=== PATIENT | female | born 2000 | race Caucasian/White ===

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

== ENCOUNTER 2021-03-13 10:18 | Outpatient (RCR) | payer MEDICAID, SELFPAY ==
--- NOTE | 2021-03-13 09:05 | BH.SGPN.GN ---
Behaviors/Verbalizations/Mental Status: [] Eye contact is good. Motor activity is appropriate. Appearance is casual. Speech is Appropriate. Mood is depressed. Affect is flat. Thoughts are linear and logical. No evidence of psychosis. Reviewed daily check in sheet and no reports of suicidal ideations or intent Client Response/Progress/Benefit: [] Pt participated when prompted. Attentive. This was pt's first day in IOP and she shared with the group that she has a hx of PTSD, anxiety, and depression. She reported a recent admission to an inpatient psychiatric unit for a suicide attempt. Briefly talked about recent stressors and struggles with mental health. Group was supportive offered feedback and advice for her first day and week in IOP which was beneficial. No progress noted as this is pt's first day in IOP. Will continue in IOP to maintain safety, increase healthy coping, and prevent decompensation. Narrative Note: []
--- NOTE | 2021-03-13 10:20 | BH.SGPN.GN ---
Behaviors/Verbalizations/Mental Status: []Client alert and oriented, casually dressed and groomed. Eye contact good. Motor activity appropriate. Speech within normal limits. Affect flat, mood depressed and irritable. Thoughts linear, logical, no signs of hallucinations or delusions. Client Response/Progress/Benefit: []Pt was mostly a passive participant in group discussions and activity. Attentive during psychoeducation. Along with peers provided insight into topics discussed which included; What is social support? Why is social support important? What are the benefits of using our supports? How does a lack of strong social supports impact our mental health and symptom management? Pt was mostly quiet during the discussions, but she was engaged in the activity and was able to connect the activity to the topic of creating and maintaining a balance of social supports. Benefited from increased awareness of the benefits to a balanced social support and barriers to utilizing social support. First day of IOP tx. Will continue tx to prevent decompensation, maintain safety, and learn healthier coping skills. Narrative Note: []
--- NOTE | 2021-03-13 11:18 | BH.SGPN.GN ---
Behaviors/Verbalizations/Mental Status: []Client alert and oriented, casually dressed and groomed. Eye contact good. Motor activity appropriate. Speech within normal limits. Affect congruent, mood anxious, depressed. Thoughts linear, logical, no signs of hallucinations or delusions. Client Response/Progress/Benefit: []Client new to IOP tx. She remained an active participant throughout AEB remaining attentive to discussion and taking notes throughout. Client participated in the group activity highlighting the various barriers to effectively utilizing supports and strategies for improving support. Participated in discussion of the 5 ways our supports can support us (emotional, tangible, affirmational, network/belonging, and instructional) and the group listed examples for all types. Client reports wanting to work on increasing emotional support, noting this will help her to have someone to listen and aid in working through stressful situations without getting overwhelmed. Client plans to do this by reaching out to her supports and challenging herself to more actively express her emotions. Client seemed to benefit from identifying the type of support and how this support will aid in promoting overall mental wellness. Will continue with IOP tx to improve insight into mental health, reduce depression, improve healthy coping, and prevent decompensation. Narrative Note: []
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
[2021-03-14 12:13] VITALS: BP 110/72; PULSE 66
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
--- NOTE | 2021-03-14 12:45 | BH.DR.ITP ---
Initial Treatment Plan Patient Information Visit Information: ADMISSION DATE: EXPECTED LOS: 4-6 weeks Problems/Symptoms Problem #1:: Depression Symptom:: Sadness, crying, hopelessness, worthlessness, anhedonia, low energy, guilt, recent passive suicidal ideation, recent suicide attempts. Problem #2:: Anxiety Symptom:: Worry, rumination, panic attacks, flashbacks, reexperiencing, avoidance.
--- NOTE | 2021-03-16 09:02 | BH.SGPN.GN ---
Behaviors/Verbalizations/Mental Status: []Eye contact is good. Motor activity is appropriate. Appearance is casual. Speech is appropriate. Mood is stressed. Affect is congruent. Thoughts are linear and logical. No evidence of psychosis. Reviewed daily symptom tracker sheet with no reports of suicidal ideations, plan, or intent. Client Response/Progress/Benefit: []Client was engaged throughout group discussion. Client reported her emotion of the day as ?scared and stressed?. Client stated that she has been experiencing night terrors, and has been reaching out to her mentor for support. Client also discussed being stressed because her daughter is sick, and her mother did not tell her. Client appeared to benefit from supportive group discussion normalizing feelings and providing suggestions of coping skills, including grounding techniques. Progress notes AEB client?s report of using healthy coping skill of reaching out to support. Client reported per daily symptom tracker that her mood and ability to function have been generally better. Will continue IOP treatment to increase knowledge of healthy coping skills to increase functioning and mood stability. Narrative Note: []
--- NOTE | 2021-03-16 10:00 | BH.SGPN.GN ---
Behaviors/Verbalizations/Mental Status: []Client alert and oriented, neatly dressed and groomed. Eye contact good. Motor activity appropriate. Speech within normal limits. Affect constricted, mood anxious. Thoughts linear, logical, no signs of hallucinations or delusions. Client Response/Progress/Benefit: []Pt was an active participant in group discussion and activity. Attentive during psychoeducation on the stages of change. Pt participated in interactive discussion on emotions associated with change (guilty, anxious, sadness, hopeful, confident, exhausted, etc). Pt along with peers identified barriers that may prevent one from making change which included; fear of the unknown, feeling overwhelmed, and self-doubt. Pt shared ?people plant seeds of doubt in your mind? which has been a barrier to pt changing in the past. Benefited from increased awareness of emotions related to change, the change process, and benefits/barriers to change. Will continue IOP tx to maintain safety, prevent decompensation, and gain healthy coping skills. Narrative Note: []
--- NOTE | 2021-03-16 11:00 | BH.SGPN.GN ---
Behaviors/Verbalizations/Mental Status: []Client alert and oriented, casually dressed and appropriately groomed. Eye contact good. Motor activity appropriate. Speech within normal limits. Affect congruent, mood anxious. Thoughts linear, logical, no signs of hallucinations or delusions. Client Response/Progress/Benefit: []Client responded well to session AEB taking notes and contributing to discussion. Client contributed during psychoeducation on the change process and different emotions in each stage of change. Client identified a change client would like to make to improve mental health which was to increase positive supports in her life.? Client shared this change will help client reduce depression. Client reports belief she is currently in the preparation stage as client has started to block previous toxic people in her life. Client stated reminding herself that it's okay to put herself first will help her keep moving forward with this change. Appeared to benefit from identifying what stage of change client is in and identifying strategies to overcome barriers. Will continue IOP tx to reduce intensity of symptoms, reduce negative thinking, and prevent decompensation.
== END 2021-03-18 23:59 ==
LOC: BHIOP 10:18
PROVIDERS: PCP Family Medicine; Visit Provider Psychiatry & Neurology Psychiatry
DX: O99.341 Other mental disorders complicating pregnancy, first trimester (principal); Z3A.01 Less than 8 weeks gestation of pregnancy; F33.2 Major depressive disorder, recurrent severe without psychotic features; F60.3 Borderline personality disorder; F41.1 Generalized anxiety disorder; F43.10 Post-traumatic stress disorder, unspecified
CPT/HCPCS: 90792; H2012; H2020; T1002

== ENCOUNTER 2021-03-20 09:00 | Outpatient (RCR) | payer MEDICAID, SELFPAY ==
[2021-03-19 00:35] VITALS: BP 110/72; PULSE 66
--- NOTE | 2021-03-20 09:05 | BH.SGPN.GN ---
Behaviors/Verbalizations/Mental Status: [] Eye contact is good. Motor activity is appropriate. Appearance is casual. Speech is Appropriate. Mood is depressed. Affect is flat. Thoughts are linear and logical. No evidence of psychosis. Reviewed daily check in sheet and pt reports 1/5 for suicidal ideations and 0/5 for intent. Therapist discussed this with patient who reports that 1-3 is baseline for her chronic SI. No intent. Client Response/Progress/Benefit: [] Pt was an active participant in group discussion. Attentive. Provided appropriate feedback. Daily symptom tracker notes 4/5 for anxiety and 3/5 for depression. Pt shared psychosocial stressors and how they are impacting her. Reports conflict with her mother who is caring for her child. This is causing frustration and pt is fearful it will impact her relationship with her daughter. She vented stressors and reports that she has spoken with her mentor and top icer and they have agreed to have a meeting with pt and her mother. She believes that this is a healthy ways to address concerns with independent support. Mother is reported to be agreeable. Also reports that she is scheduled to start a new job which is an additional stressor. She believes it will be a healthy distraction and improve purpose. Also believes being busy and social is helpful. Progress noted per pt report. Benefited from group support, encouragement, and feedback. Will continue in IOP to maintain safety and prevent decompensation/re-admission to psych unit. Narrative Note: []
--- NOTE | 2021-03-20 10:15 | BH.SGPN.GN ---
Behaviors/Verbalizations/Mental Status: []Client alert and oriented, casually dressed and groomed. Eye contact poor-head down at times. Motor activity appropriate. Speech within normal limits. Affect flat, mood dysthymic. Thoughts linear, logical, no signs of hallucinations or delusions. Client Response/Progress/Benefit: []Pt was passive during group session as pt was attentive and taking more notes, but was quiet. Attentive during psychoeducation and discussion on the importance of goal-setting with the group. Group identified potential benefits of having goals to include: to better oneself, increase self-confidence, improve relationships, create better boundaries, and improve mental health. Group also worked together to identify barriers to goal-setting which included; self-doubt, fear of failure, fear of success, and lack of motivation. Pt declined to identify any personal barriers that keep pt from setting or reaching goals. Benefited from increased awareness of benefits and barriers to goal-setting. Pt appeared tired today as she was less engaged than previous sessions and had her head down several times. Will continue IOP tx to increase mood stability, reduce impulsivity, and gain healthy coping skills. Narrative Note: []
--- NOTE | 2021-03-20 11:18 | BH.SGPN.GN ---
Behaviors/Verbalizations/Mental Status: []Client mostly alert, at times falling asleep during group as she indicated not feeling well, oriented, casually dressed and groomed. Eye contact fair. Motor activity appropriate. Speech within normal limits. Affect constricted, mood depressed. Thoughts linear, logical, no signs of hallucinations or delusions. Client Response/Progress/Benefit: []Pt was a semi-active participant in group discussions and activities. Engaged in activity, though struggled with remaining fully engaged throughout discussion as she noted not feeling well. Was willing to complete the goalsetting worksheet provided. Pt identified a SMART goal for the next week is to: Identify 1-2 boundaries she would like to begin setting with her mother and new job. Pt reported this would benefit her mental health by improving her relationships and overall self-confidence levels. Identified fear as a potential barrier to completing this goal. Pt able to identify several solutions, such as reaching out to supports, that can help overcome identified barriers. Benefited from group by being able to utilize SMART formula to create a goal. Pt to continue IOP to stabilize mood, increase communication with supports, reduce depression and anxiety, as well as prevent decompensation. Narrative Note: []
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
--- NOTE | 2021-03-21 09:01 | BH.SGPN.GN ---
Behaviors/Verbalizations/Mental Status: []Eye contact is good. Motor activity is appropriate. Appearance is casual. Speech is Appropriate. Mood is anxious and dysthymic. Affect is constricted. Thoughts are linear and logical. No evidence of psychosis. Reviewed daily check in sheet and no reports of suicidal ideations or intent. Client Response/Progress/Benefit: []Pt responded well to session AEB pt sharing thoughts and feelings, listening attentively to others and providing feedback to others. Pt stated feeling anxious because she was having cramping over the weekend and is worried something is wrong with her . Pt reported additional stressor as having a meeting with her mom with her mentor and electrical and instrument technician as mediators. Pt able to identify mental health positive as starting her new job next week. Pt reported additional positive as taking time to write letters as a healthy coping skill. Pt reported she does need to work on finding new hobbies and ways to cope. Pt to continue IOP to increase healthy coping skills, improve emotion regulation and prevent decompensation. Narrative Note: []
--- NOTE | 2021-03-21 10:10 | BH.SGPN.GN ---
Behaviors/Verbalizations/Mental Status: []Eye contact is good. Motor activity is appropriate. Appearance is casual. Speech is Appropriate. Mood is anxious, depressed. Affect is constricted. Thoughts are linear and logical. No evidence of psychosis Client Response/Progress/Benefit: []Pt was an active participant in group discussion AEB taking noted and contributing throughout. Attentive during psychoeducation on Conflict Styles ( Avoidant, Competing, Accommodating, and Collaborating). Participated in interactive group discussion on benefits of conflict.? Pt along with peers identified several reasons conflict is often avoided which included; anxiety, fear of other?s reaction, not wanting to face additional conflict, and negative past experiences. Pt reported that for her conflict is ?scary?. Shared that ?should? thoughts lead to internal conflict for herself. Pt believes she primarily uses the avoidant conflict style. Shared this continues to maintain the conflict or escalates to the point of crisis and self-harming. Noted she has been trying to be more collaborating and competing with potential conflicts lately. Benefited from increased awareness on conflict styles. Will continue in IOP to promote mood stability, increase the use of healthy coping skills for better managing depression, and improve functioning. Narrative Note: []
--- NOTE | 2021-03-21 12:23 | PCM.BH.PN ---
Progress Note Progress Note: In the history of Present Illness/Interim History: [] The patient is a 20-year-old single female who is seen in follow-up at the [facility] [place] behavioral health IOP program. I last saw the patient 1 week ago and at that time the patient presented with severe depression and now has an 8-week intrauterine . She has a history of 3 psychiatric admissions in the past 3 months for depression and suicide attempts by overdosing or cutting her wrists. The patient lives alone in an apartment in [place] and has a 1-year-old daughter that her mother has been raising for the past 8 months. The patient has limited primary support. The patient is having severe nausea and vomiting from morning sickness in the first trimester of her . The patient has been unable to hold down her Prozac at all and is currently therefore not taking any medication for depression. The patient says she cannot swallow any kind of pill or capsule. For this reason the patient was offered Remeron orally dissolving tablets and she refused them at the first visit. The patient states now that she would like to try the mirtazapine tablets that dissolve under the tongue. She understands there is no guarantee that a will not be harmed by antidepressants such as mirtazapine but the current risk of treating the depression outweigh any minor risks of the antidepressant on the . The patient states that although she is still depressed she is not currently suicidal. She also denies homicidal ideation, hallucinations or delusions. She has not been using alcohol or drugs since she found out she was . She is still vaping nicotine 2 puffs a day. Current Psychiatric Medications: [] Prozac 20 mg (unable to take this medication as she cannot keep pills or capsules down). Zofran 4 mg p.o. as needed for nausea. Mental Status Examination: [] The patient is a 20-year-old female who is seen wearing a mask due to the pandemic and is casually dressed and groomed with good hygiene. She has no psychomotor agitation or retardation. She is cooperative during the interview with good eye contact. Speech is normal rate and rhythm and fluent with no pressure. Mood is depressed. Affect is constricted. Thought process is goal-directed and organized. Thought content: There is evidence of passive thoughts of at times with the patient states that she would never kill herself because she knows that her children need her. There is no evidence of suicidal ideation, homicidal ideation, hallucinations or delusions. Reality testing is intact. Judgment is limited. Insight is poor. Impulsivity is high. Diagnosis: 1. Major depressive disorder, recurrent, severe without psychosis 2. Borderline personality disorder 3. Generalized anxiety disorder 4. PTSD 5. 8-week intrauterine 6. Poor primary support 7. Financial, housing and work issues Plan: [] The patient will continue the IOP program at [facility] [place] as the structure, support, education, and group therapy will hopefully prevent worsening of the patient's symptoms which might require rehospitalization. She felt safe during the interview and if it anytime she does not feel safe she will let us know or go to the emergency room. The risk, options, possible complications and side effects of the medications and especially side effects during were discussed with the patient and she understands and accepts these. Patient understands that the risks of not treating her depression at this point outweigh any perceived risks to the . She agrees to try the Remeron under the tongue 15 mg at bedtime daily. If the patient's nausea and vomiting resolve in the second trimester of the patient may be a candidate to change to a pill or capsule medication. She will continue to follow-up with her outpatient psychiatric, obstetric and medical providers. I will see the patient in 1 week in follow-up.
--- NOTE | 2021-03-21 13:42 | BH.MDN_ITS ---
Multi-Disciplinary Note - Note 45-min Individual Time Started:: 11:15 Date: 03/21/21 Purpose of session/treatment goals addressed:: Purpose of session was to address goal 1 from MTP. Eye Contact:: Fair Motor Activity:: Restless Appearance:: Casual Speech:: Rambling Mood:: Anxious, Dysthymic Affect:: Constricted Thoughts:: Racing, No evidence of hallucinations/delusions noted Staff Interventions:: thought challenging, motivational interviewing, CBT te isaac, rapport building, completed risk assessment / safety planning - reducing access to lethal means, goal setting Client Response:: Pt reported feeling anxious today because has a meeting tomorrow with her mom, mentor and post adoption coordinator. Pt stated in the meeting they are to discuss the $7,000 pt gave to her mom to care for pt's one year old daughter. Pt stated they are also to discuss letting pt seeing her daughter on a more frequent basis. Pt stated she is hoping this meeting will be eye opening to her mom. Pt stated it will be helpful to have her mentor and post adoption coordinator at the meeting because they will help pt's mom stay respectful. Pt stated she was in a bad place earlier in the week with having suicidal thoughts. Pt reported she doesn't have any intention to kill herself but was worried that the SI has returned. Pt agreeable to talk to mentor about taking pt's medications to help reduce access to lethal means. Pt receptive to therapist helping pt reframe/challenge distorted thoughts pt has about herself. Pt stated it helps her to see a different perspective because she struggles doing that on her own. Discussed importance of pt engaging in activities that she enjoys doing. Pt identified she likes to write letters, go on walks, hang out with friends, and do crafts. Pt stated she hasn't been engaging in these activities recently. Pt reported goals for week are to shower, look into joining the [place], and hanging out with a friend. Risks/Concerns:: Pt reports increased suicidal ideation this week, but denies suicidal plan or intention to date. See client response for more information. Pt encouraged to give her medications to her mentor to reduce access to means. Pt agreeable. Pt being currently is a significant protective factor. Progress Toward Goals/Plan:: Limited progress. Pt continues to report suicidal ideation, but with decreased intensity and duration. Pt receptive to trying new skills and getting back into engaging in activities she used to enjoy. Pt to continue IOP to increase healthy coping, improve self-confidence and prevent decompensation. Time Stopped:: 12:00
--- NOTE | 2021-03-21 16:44 | BH.PSA_ITS ---
Suicide Assessment Treatment Plan Recommendations
--- NOTE | 2021-03-21 16:44 | BH.PSA ---
Suicide Assessment Treatment Plan Recommendations
--- NOTE | 2021-03-23 11:10 | BH.SGPN.GN ---
Behaviors/Verbalizations/Mental Status: []Client alert and oriented, casually dressed and groomed. Eye contact good. Motor activity appropriate. Speech within normal limits. Affect constricted, mood dysthymic. Thoughts linear, logical, no signs of hallucinations or delusions. Client Response/Progress/Benefit: []Client engaged participant AEB client providing some input during small group discussion, taking notes and listening attentively to others. Group brainstormed strategies to combat social and perceived stigma which included: educating others, no longer using negative language about mental illness, being vulnerable with supports, and attending support groups. Client shared one thing she can do to combat stigma is to practice self-compassion and to reach out when she wants to isolate. Appeared to benefit from increasing awareness of strategies to combat stigma. Will continue IOP tx to prevent decompensation, maintain safety, and gain healthy coping skills. Narrative Note: []
--- NOTE | 2021-03-23 11:16 | BH.COMM ---
Communication Note - Communication with Client Communication Note: This junior technical writer met with pt briefly to assess suicide lethality due to pt indicating a 4/5, with 5 being severe for suicidal thoughts on morning symptom tracker. Pt did indicate a 0/5 for intent to kill self. Pt reported she is feeling suicidal today because the meeting with her mom, business travel consultant and mentor did not go well yesterday. Pt stated she felt attacked by her supports and her issues were not addressed. Pt reported she is now only allowed to see her daughter once a week until she completes IOP. Pt stated she isn't allowed to go to her mom's house to see her sister. Pt reported her business travel consultant, mom and mentor were encouraging pt to give her 1 year old daughter up for adoption. Pt stated she is frustrated that her supports do not believe in her and questioned whether she could complete IOP. Pt stated she will not kill herself. Pt reported she doesn't have a plan and doesn't have any medication at her home to take. Pt stated her plan today is to clean her bed and to hang out with her sister. Pt agreeable to contact [facility] to establish with counseling, psychiatry and case management. Pt stated it would be helpful to have a case management rn that can help her apply for different assistance programs because she has no intention of given up her daughter or give up her child after she gives .
--- NOTE | 2021-03-23 11:21 | BH.MDN ---
Multi-Disciplinary Note - Note 30-min Individual Time Started:: 10:20 Date: 03/23/21 Purpose of session/treatment goals addressed:: This investment underwriter met with pt briefly to assess suicide lethality due to pt indicating a 4/5, with 5 being severe for suicidal thoughts on morning symptom tracker. Pt did indicate a 0/5 for intent to kill self. Eye Contact:: Fair Motor Activity:: Appropriate Appearance:: Casual Speech:: Rambling, Rapid Mood:: Anxious, Irritable, Depressed Affect:: Congruent, Other - tearful Thoughts:: Racing, No evidence of hallucinations/delusions noted Staff Interventions:: motivational interviewing, completed risk assessment / safety planning, goal setting Client Response:: This investment underwriter met with pt briefly to assess suicide lethality due to pt indicating a 4/5, with 5 being severe for suicidal thoughts on morning symptom tracker. Pt did indicate a 0/5 for intent to kill self. Pt reported she is feeling suicidal today because the meeting with her mom, financial data analyst and mentor did not go well yesterday. Pt stated she felt attacked by her supports and her issues were not addressed. Pt reported she is now only allowed to see her daughter once a week until she completes IOP. Pt stated she isn't allowed to go to her mom's house to see her sister. Pt reported her financial data analyst, mom and mentor were encouraging pt to give her 1 year old daughter up for adoption. Pt stated she is frustrated that her supports do not believe in her and questioned whether she could complete IOP. Pt stated she will not kill herself. Pt reported she doesn't have a plan and doesn't have any medication at her home to take. Pt stated her plan today is to clean her bed and to hang out with her sister. Pt agreeable to contact [facility] to establish with counseling, psychiatry and case management. Pt stated it would be helpful to have a director case management that can help her apply for different assistance programs because she has no intention of given up her daughter or give up her child after she gives . Risks/Concerns:: Pt has gotten rid of all her medication that was in her apartment. Does not have access to firearms. Reports ability to keep self safe. Future focused. Identifies being as significant reason to live. see client response for more information. Progress Toward Goals/Plan:: Pt decompensating following stressor with mom and supports. Pt reports motivation to get better and doesn't want to hurt herself. Pt open to getting established with outpatient counseling, psychiatry and case management. Pt could benefit from services that help pt establish with government housing and other assistance programs. Pt to continue IOP to maintain safety, increase healthy coping and prevent decompensation. Time Stopped:: 10:50
--- NOTE | 2021-03-27 09:04 | BH.SGPN.GN ---
Behaviors/Verbalizations/Mental Status: []Client alert and oriented, casually dressed and groomed. Eye contact good. Motor activity appropriate. Speech within normal limits. Affect incongruent as pt smiling while discussing several significant stressors, mood euthymic. Thoughts linear, logical, no signs of hallucinations or delusions. Reviewed client?s symptom tracker, no risk for suicidal ideation rated as 1/5 which is within pt baseline, denies any plan, or intent as of 03/27/21. Client Response/Progress/Benefit: []Client responded well to session, attentive and willing to process with group. Client reports feeling amused this morning which is incongruent with the rest of client check-in. Pt reports several stressors such as reduced visitation time with her daughter, the meeting with her mother and mentor not going well, as well as hurtful comments about her weight by an acquaintance. Pt spent much of session discussing her stressors and feeling upset with her current circumstances but remained smiling and positive as she discussed this. Appears to struggle with recognizing the role her own behaviors have had on maintaining current stressors which may impede progress. Pt reports beliefs she is seeing improvements in her mental health and this is reflected further in reports of maintained mood stability as indicated on daily symptom tracker. Client appeared to benefit from reflecting upon areas of progress as well as skills being used. Will continue IOP tx to promote mood stability, further improve distress management skills, and promote healthy decision making skills. Narrative Note: []
--- NOTE | 2021-03-27 10:12 | BH.SGPN.GN ---
Behaviors/Verbalizations/Mental Status: []Client alert and oriented, neatly dressed and groomed. Eye contact good. Motor activity appropriate. Speech within normal limits. Affect constricted, mood agitated. Thoughts linear, logical, no signs of hallucinations or delusions. Client Response/Progress/Benefit: []Pt was an active participant in group discussion and activity. Attentive during psychoeducation on coping skills. Pt along with peers worked together to identify unhealthy coping skills such as; avoidance, substance use, and trying to take care of issues alone. Group was able to identify why people use unhealthy coping skills such as; easy, comfortable, work in the short-term, habit, or take less energy. Pt noted that one?s perspective can impact how well they cope with significant life stressors and gave a personal example of coping with trauma. Benefited from increased understanding of unhealthy coping skills and the need for developing healthy internal coping skills to manage mental health sx. Pt will continue in IOP to prevent decompensation, increase mood stability, and gain healthy emotional regulation skills. Narrative Note: []
--- NOTE | 2021-03-27 11:12 | BH.SGPN.GN ---
Behaviors/Verbalizations/Mental Status: []Client alert and oriented, casual dress, hygiene tended to. Eye contact good. Motor activity appropriate. Speech within normal limits. Affect congruent, mood dysthymic. Thoughts linear, logical, no signs of hallucinations or delusions. Client Response/Progress/Benefit: []Client responded well to session, actively listening and providing examples. Client reported she needs to increase both healthy internal and external coping skills. Group discussed the different categories of coping skills which included distraction, emotional release, grounding, self-love, and thought challenging. Client participated in creating a coping skills ?menu? from the five categories of coping skills. Client's coping skill menu included: exercise, writing, belly breathing, personal hygiene/drink water, and reading. Appeared to benefit from increasing repertoire of healthy coping skills. Will continue tx to increase healthy coping, improve daily functioning and prevent decompensation. Narrative Note: []
--- NOTE | 2021-03-28 09:04 | BH.SGPN.GN ---
Behaviors/Verbalizations/Mental Status: []Client alert and oriented, casually dressed and groomed, appearing disheveled. Eye contact good. Motor activity appropriate. Speech within normal limits. Affect congruent, mood depressed, agitated. Thoughts linear, logical, no signs of hallucinations or delusions. Reviewed client?s symptom tracker, risk for suicidal ideation reported as 2/5. Pt agreeable to meet with individual therapist for further assessment/safety planning Client Response/Progress/Benefit: []Client receptive to session, attentive though remaining a passive participant. Client reports feeling ?scared and depressed this morning. Client shared she had been in a positive mood yesterday until going to her mother?s to do laundry. Shared knowing that this was potentially self-sabotage as she and her mother had a very tense relationship. Noted that she had tried to avoid her mother and mostly interact with her sister but was not successful in doing so. Shared ultimately getting into a huge argument which resulted in client leaving and experiencing increased urges to engage in self-harming behaviors. Client discussed successfully refraining from doing so and instead called the crisis hotline which was helpful. Reflected that this is progress as she would typically cut following an argument with her mother. Went on to identify plans to establish healthier boundaries with her mother but continues to struggle in this area. Appeared to benefit from structured and supportive group environment. Client recommended continued IOP tx to improve distress tolerance skills, emotion regulation, and healthy decision-making to reduce symptomology and prevent decompensation. Narrative Note: []
--- NOTE | 2021-03-28 10:10 | BH.SGPN.GN ---
Behaviors/Verbalizations/Mental Status: []Client alert and oriented, well dressed and groomed. Eye contact fair. Motor activity appropriate. Speech within normal limits. Affect constricted, mood anxious. Thoughts linear, logical, no signs of hallucinations or delusions. Client Response/Progress/Benefit: []Client responded well to session AEB client contributing to group discussion and listening attentively to others. Group was primarily education based, with clients participating in small group discussion. Client contributed to small group discussion regarding traits to promote resilience. Client?s group discussed keeping things in perspective, maintaining a hopeful outlook, self-care, and taking decisive action to increase resilience. Client seemed to benefit from increased knowledge of strategies to promote resilience. Progress noted in client participating in small group discussion, however client continues to struggle with managing interpersonal conflict. Will continue IOP treatment to increase mood stabilization to increase client?s functioning. Narrative Note: []
--- NOTE | 2021-03-28 13:43 | BH.MDN_ITS ---
Multi-Disciplinary Note - Note 30-min Individual Time Started:: 11:30 Date: 03/28/21 Purpose of session/treatment goals addressed:: Purpose of session was to address goals 1 and 2 from MTP. Eye Contact:: Fair Motor Activity:: Restless Appearance:: Casual Speech:: Rambling - at times Mood:: Anxious, Depressed Affect:: Constricted Thoughts:: Linear, No evidence of hallucinations/delusions noted Staff Interventions:: thought challenging, motivational interviewing, CBT techniques, strengths perspective, goal setting Client Response:: Pt stated she wants to get her daughter back from her mom because she doesn't think it's a good environment for her daughter. Pt reported she had raised her daughter from until her daughter was 6 months old on her own. Pt stated she gave her daughter to her mom temporarily in October 2020 because pt knew she wasn't doing well and couldn't provide what her daughter needed. Pt reported she does believe she was being a good mom by recognizing at the time her daughter would be better with her mom. Pt stated now she is questioning if she should get her daughter back now. Pt receptive to therapist challenging pt's perspective. Pt agreed it would be better if she continued the current plan of her daughter staying with her mom until pt graduates from [employer]. Pt also agreed it would be rodas to get established with the counseling center so she can have outpatient counseling, psychatiry and case management established. Therapist reminded pt she needs to show her family that she can be stable by staying out of the hospital, not hurting herself, and maintaining her new job. Pt agreeable she needs to focus on improving her mental health and establishing with outpatient providers so she can feel more stable to get her daughter back. Pt reported goal for week is to pay bills, ,call counseling center and call [facility] to get her medication figured out. Risks/Concerns:: Pt reports passive thoughts of at times. Denies suicidal intention or plan to date. NO access to firearms or medications. Future focused. Progress Toward Goals/Plan:: Progress noted with pt reporting decrease in SI, increased motivation to use skills to get better, and ability to challenge persepctive. Pt continues to struggles with emotion regulation in the moment which leads to impulsive urges to engage in self-sabotage behaviors. Pt struggles with independently challenging distorted thoughts and persepctive. Pt is to continue IOP to increase consistent use of healthy coping, challenge distorted thoughts and prevent decompensation. Time Stopped:: 12:00
--- NOTE | 2021-03-30 09:05 | BH.SGPN.GN ---
Behaviors/Verbalizations/Mental Status: [] Eye contact is good. Motor activity is appropriate. Appearance is casual. Speech is Appropriate. Mood is irritable. Affect is full. Thoughts are linear and logical. No evidence of psychosis. Reviewed daily check in sheet and no reports of suicidal ideations or intent. Client Response/Progress/Benefit: [] Pt was an active participant in group discussion on the role of blame on mental health. Daily symptom tracker notes 4/5 for irritability and 3/5 for anxiety. Continues to report struggles with relationship with her mother. They have trouble communicating effectively and setting boundaries with each other. She shared that she felt good after IOP on 03/28/21 however was contacted by her mother with a crisis event or drama which worsened her mood for the remainder of the night. Mental health win is that she is scheduled to begin her job this evening. Reports that she is attempting to utilize skills and self-care strategies. Also reports that she does get benefit from attending IOP and getting support for her mental health. Some progress noted per pt report. Benefited from group support, encouragement, and feedback. Will continue in IOP to maintain safety, increase healthy coping, and prevent decompensation. Narrative Note: []
--- NOTE | 2021-03-30 10:15 | BH.SGPN.GN ---
Behaviors/Verbalizations/Mental Status: []Client alert and oriented, casually dressed and groomed. Eye contact good. Motor activity appropriate. Speech within normal limits. Affect constricted, mood depressed. Thoughts linear, logical, no signs of hallucinations or delusions. Client Response/Progress/Benefit: []Pt frequently nodding during group discussions and attentive during psychoeducation. Took notes as group identified obstacles or potholes that hinder our ability to communicate in stressful situations. Group identified the following obstacles; shutting down, mind-reading, lashing out, and becoming defensive. Pt provided insight on how emotion and mood can impact effective communication. Pt took an active role during the activity and processed how she felt anxious to have her back to peers. Pt shared she reminded herself that IOP is a safe place, and this helped pt cope in the moment. Benefited from increased awareness on how our emotions impact our communication. Will continue in IOP to reduce frequency of suicidal ideations, increase emotional regulation skills, and improve functioning. Narrative Note: []
--- NOTE | 2021-04-03 09:00 | BH.SGPN.GN ---
Behaviors/Verbalizations/Mental Status: []Client alert and oriented, casually dressed and groomed. Eye contact good. Motor activity appropriate. Speech within normal limits. Affect congruent, mood euthymic and anxious. Thoughts linear, logical, no signs of hallucinations or delusions. Reviewed client?s symptom tracker, no risk for suicidal ideation, plan, or intent as of 04/03/21 Client Response/Progress/Benefit: []Client responded well to session, attentive and connecting with peers. Client reports feeling happy and stressed this morning due to work stressors and ongoing interpersonal relationship issues. Client's biggest stressor is her relationship with her mother as her mother is the primary caregiver for client's daughter. Client reports belief that her mother is not a good caregiver and often gets frustrated when her mother does not let client see her child. Client admits that there are times client will instigate her mother, but client appears to not see how this could be self-sabotage. Client's wins this week include starting a job and not losing it at work. Progress continues to be variable based on the day/week due to mood being dependent on external situations. Will continue IOP tx to increase emotional regulation skills, improve interpersonal effectiveness skills, and improve functioning. Narrative Note: []
--- NOTE | 2021-04-03 10:05 | BH.SGPN.GN ---
Behaviors/Verbalizations/Mental Status: []Eye contact is good. Motor activity is appropriate. Appearance is neat. Speech is Appropriate. Mood is dysthymic. Affect is constricted. Thoughts are linear and logical. No evidence of psychosis. Client Response/Progress/Benefit: []Pt was an active participant in group discussion AEB taking notes and providing input throughout. Attentive during psychoeducation reviewing internal and external obstacles and provided examples throughout. Participated in the reflection activity in which clients sariah pictures depicting their current and desired reality and shared with the group. Pt stated current reality she feels overwhelmed at times and isolated. However, stated she does have optimism and hope that she can get better. Pt reported desired reality is to have the tools needed to be able to manage stressors more effectively and to feel more stable. Benefited from group by increasing current awareness and expectations for progress. Pt to continue IOP to improve emotion regulation, increase healthy coping and prevent decompensation.
--- NOTE | 2021-04-03 11:10 | BH.SGPN.GN ---
Behaviors/Verbalizations/Mental Status: [] Eye contact is good. Motor activity is appropriate. Appearance is casual. Speech is Appropriate. Mood is euthymic. Affect is full. Thoughts are linear and logical. No evidence of psychosis. Client Response/Progress/Benefit: [] Pt was an active participant in group discussion and activity. Attentive during psychoeducation. Provided appropriate feedback and insight. Pt identified obstacles that have prevented them from obtaining desired reality being family, other's expectations, and poor boundaries. Identified strategies to promote emotional wellness and overcome obstacles which included; leave when feeling disrespected and discuss boundaries with support. Benefited from identifying obstacles in pt's path to mental wellness and developing strategies to minimize the impact of these obstacles. Will continue in IOP to maintain safety, increase healthy coping, and prevent decompensation. Narrative Note: []
--- NOTE | 2021-04-04 09:03 | BH.SGPN.GN ---
Behaviors/Verbalizations/Mental Status: []Client alert and oriented, casually dressed and groomed. Eye contact good. Motor activity appropriate. Speech within normal limits. Affect congruent, mood anxious, euthymic. Thoughts linear, logical, no signs of hallucinations or delusions. Reviewed client?s symptom tracker, no risk for suicidal ideation, plan, or intent as of 04/04/21. Client Response/Progress/Benefit: []Client receptive to session, attentive and willing to participate throughout. Reports feeling ?happy but overwhelmed this morning. Shared that she is happy as she feels she is beginning to make progress. Identified beginning a new job, as well as taking some steps to improve her self-care. Client discussed that she is continuing to struggle with maintaining healthy boundaries however, which has been an ongoing barrier to progress. Acknowledged that at this time her relationship with her mother is unhealthy but plans to attend the family Thanksgiving. Shared feeling obligated to do so as she wants he daughter to have the family experience. Receptive of discussion concerning boundaries potentially limiting exposure or leaving early if possible. Appeared to benefit from supportive group environment and discussion on prioritizing mental health needs. Recommended continued IOP tx to improve mood stability, improve heathy boundary setting and healthy coping, as well as prevent decompensation. Narrative Note: []
--- NOTE | 2021-04-04 10:10 | BH.SGPN.GN ---
Behaviors/Verbalizations/Mental Status: []Client alert and oriented, casually dressed and groomed. Eye contact fair. Motor activity appropriate. Speech within normal limits. Affect congruent, mood euthymic. Thoughts linear, logical, no signs of hallucinations or delusions. Client Response/Progress/Benefit: []Client responded well to session AEB client contributing to session and listening attentively to others. Client connected with the topic of perspective, discussing how a depression lens will make it very difficult to see positives. Client participated in the photo activity, and noted that she felt automatically negative toward the family based on her first glance. When asked to look for positives in the photo, the client stated she felt hopeful, because there is ?always a different way to look at things, and different perspectives?. Client seemed to benefit from increasing awareness of perspectives and how positive perspectives can aid in mental health recovery. Progress noted in client?s increased engagement in group session. Will continue IOP treatment to increase mood stability and prevent decompensation. Narrative Note: []
--- NOTE | 2021-04-04 12:20 | PCM.BH.PN_ITS ---
Progress Note Progress Note: History of Present Illness/Interim History: [] The patient is a 20-year-old female who is seen in follow-up at the [facility] behavioral health IOP program. I last saw the patient 2 weeks ago and at that time the patient was having severe morning sickness with nausea and vomiting and because she was unable to swallow her Prozac without throwing it up she was prescribed orally dissolving tablets of Remeron. The patient never started the Remeron because she says the pharmacy did not have it in stock. The orally dissolving formulation they were unable to get as of yet. The patient is now 11-1/2 to 12 weeks and her and has less morning sickness now with less nausea and vomiting. The patient states that she thinks she might be able to swallow a pill now if she takes it at night. She feels that she is doing better overall and her mood. She has some rough days but she states she has other days where she feels much better now. She feels she is learning skills to cope with her down days or her mood exacerbations. She states that she does not have any passive thoughts of now. She had passive thoughts of suicide once in the past 2 weeks but she reached out for help and was able to get through this. She feels that also being with her baby is protective and she will not kill her self due to that fact. The patient started a new job last week and so far it is going okay. Current Psychiatric Medications: [] None as patient is not taking her Prozac. Mental Status Examination: [] The patient is a 20-year-old female who is seen wearing a mask due to the pandemic and is casually dressed and groomed with good hygiene. She is cooperative during the interview and has no psychomotor agitation or retardation. Eye contact is good and speech is normal rate and rhythm and fluent with no pressure. Mood is less depressed but still some depression. Affect is less constricted. Thought process is goal-directed and organized. Thought content: There is no evidence of passive thoughts of , suicidal ideation, homicidal ideation, hallucinations or delusions. Patient feels that her children need her. Judgment is limited. Insight is limited. Impulsivity is high. Diagnoses: [] 1. Major depressive disorder, recurrent, severe without psychosis (improving) 2. Borderline personality disorder 3. Generalized anxiety disorder 4. PTSD 5. 11-1/2-week intrauterine 6. Poor primary support 7. Financial, housing and work issues Plan: [] The patient will continue the IOP program at [facility] as the structure, support, education, and group therapy will hopefully prevent worsening of the patient's symptoms which might require hospitalization. She felt safe during the interview and if it anytime she does not feel safe she will let us know or go to the emergency room. The risks, options, possible complica tions and side effects of the medications in and breast-feeding were discussed with the patient again and she understands and accepts these. The patient feels that her morning sickness has improved to the point where she feels that if she can take a pill at night she will be able to keep it down. She agrees to try restarting her Zoloft at 50 mg p.o. at bedtime. She understands that Zoloft is probably the best medication to take if you plan to breast-feed and the patient does plan to breast-feed her baby. She will continue to follow-up with her outpatient psychiatric and medical providers also. I will see the patient in follow-up in 1 to 2 weeks.
--- NOTE | 2021-04-05 14:02 | BH.MDN_ITS ---
Multi-Disciplinary Note - Note 30-min Individual Time Started:: 11:25 Date: 04/04/21 Purpose of session/treatment goals addressed:: Purpose of session was to address goal 1 from MTP. Eye Contact:: Good Motor Activity:: Appropriate Appearance:: Casual Speech:: Appropriate Mood:: Euthymic Affect:: Full Thoughts:: Linear, Logical, No evidence of hallucinations/delusions noted Staff Interventions:: CBT techniques, strengths perspective, goal setting, tau ght coping skills Client Response:: Pt reported she accomplished goal of paying some of her bills and getting her medication figured out. She did not complete homework of calling counseling center to get an intake appointment. Pt stated she will do that today. Pt reported she is feeling more stable this week. Pt stated she has stressors but is not being reactive and thinking her actions through before responding. Pt reported she has had old friends say negative things about her but has been able to challenge her negative thinking and focus on what she is doing to get better. Pt repored venting to sister, processing situations, and not personalizing others thoughts/opinions has been helpful in maintaining stability. Pt reported she started her job this week which has gone okay. Pt stated she is annoyed to work with high schoolers because they are immature. Pt reported she is trying to use in the moment calming skills like deep breathing and taking a break to help her keep my cool. Pt stated her big stressor was when her mom wouldn't let pt stay at her mom's house to visit with her daughter. Pt reported she initially was very angry and had some suicidal thoughts. Pt stated she was able to problem solve by taking her daughter to a friend's house. Therapist encouraged pt to plan ahead for this Friday so she knows where to take her daughter. Pt stated goal is to use healthy coping skills, keep up with self-care and get dishes done. Risks/Concerns:: Continues to have passive thoughts of , usually triggered by a stressor. Denies active suicidal/homicidal ideation, plan or intention to date. Future focused. Progress Toward Goals/Plan:: Progress noted with pt reporting improved mood stability, decreased reactivity, improved emotion regulation and starting new job. Pt continues to struggled with mood being dictated by external stressor that tirggers an impulsive urge that is usually self-destructive. Pt has been showing some improvement with stopping self before acting upon self-destructive urge. Pt is to continue IOP to continue use of healthy coping, improve emotion regulation and prevent decompensation. Time Stopped:: 13:00
--- NOTE | 2021-04-10 10:15 | BH.SGPN.GN ---
Behaviors/Verbalizations/Mental Status: []Eye contact is fair- looking at her phone at times. Motor activity is appropriate. Appearance is casual. Speech is Appropriate. Mood is agitated and irritable. Affect is constricted. Thoughts are linear and logical. No evidence of psychosis. Client Response/Progress/Benefit: []Pt was an engaged participant in group discussions. Attentive and provided insights during psychoeducation on benefits and disadvantages of anxiety and review of different types of anxiety disorders. Completed worksheet on identifying own physical symptoms or signs of anxiety which pt reported numerous however identified most frequent as: increased heart rate, stomach issues, feeling shaky, feeling tired, and increased urge to use the restroom. Benefited from increased awareness of physiological signs of anxiety as well as differences between 'normal' anxiety and anxiety disorder. Will continue IOP tx to increase application of healthy coping skills, reduce impulsivity, and improve daily functioning. Narrative Note: []
--- NOTE | 2021-04-10 10:40 | BH.MDN ---
Multi-Disciplinary Note - Note 30-min Individual Time Started:: 09:15 Date: 04/10/21 Purpose of session/treatment goals addressed:: Purpose of session was to address goals 1 and 2 from MTP. Eye Contact:: Good Motor Activity:: Appropriate Appearance:: Casual Speech:: Appropriate Mood:: Anxious, Dysthymic Affect:: Constricted Thoughts:: Linear, Logical, No evidence of hallucinations/delusions noted Staff Interventions:: thought challenging, CBT techniques, mindfulness skills, goal setting Client Response:: Pt stated yesterday was not a good day. Pt reported she stayed in bed until 7pm because was feeling depressed about the holidays and having increased night terrors. Pt stated she recognizes staying in bed increases depressed symptoms. With help from therapist pt identified reaching out to support, taking time to clean a part of her apartment, and doing an activity she enjoys as things she can do next time she wakes up feeling depressed. Pt reported today she came to [facility] because she knows being around support and in groups helps her feel better. Pt stated anxiety about the upcoming holiday because worried there will be a fight with either her mom or mom's . Pt stated she is spending the night at her mom's tomorrow night because she is cooking the Thanksgiving dinner for everyone on . pt reported she is going to ask for help from her sister because trying to do it on her own will be overwhelming. Discussed strategies that can help pt manage stress and anxiety during the holiday gathering. Pt agreed taking breaks in her sister's bedroom and not reacting to comments made by her mom will be helpful to keep environment calm. Pt stated she doesn't want to go off on her family because doesn't want her daughter to see that toxic situation. pt reported if she is triggered by one of her family members and can't calm down then she will take her daughter to her friends house for a few hours. Pt stated she already cleared it with her friend so pt has a backup plan. Pt reported she wants to avoid a huge blow up and having an exit plan will help. Pt stated she did not follow through with goals of doing dishes or calling counseling center to schedule intake appointment. Pt reported she will have her sister hold her accountable so she calls the counseling center this week. Pt reported anxious that she will lose her apartment next month because cannot afford it. Pt stated she will probably move in with her friend because can't live with her mom. Pt reported she knows she will figure it out. Recognizes this is more reason to be established at counseling center so can get a district wildlife manager. Risks/Concerns:: reports occasional passive thoughts of . denies active suicidal/homicidal ideation, plan or intention to date. future focused. Progress Toward Goals/Plan:: Slight decompensation in symptoms AEB pt staying in bed majority of day yesterday, not attempting to use skills to help self. Pt seems to struggle with consistently applying skills, particularly has hard time using skills in the moment. Pt has insight into how her behaviors negatively impact her but seems to lack that insight in the moment. Pt continues to report depressive and anxious symptoms. It is possible pt's symptoms are increasing due to holidays coming up, which pt states she hates and is easily triggered by the holidays. Pt to continue IOP to prevent further decompensation, increase consistent use of skills and challenge distorted thoughts. Time Stopped:: 09:45
--- NOTE | 2021-04-10 11:15 | BH.SGPN.GN ---
Behaviors/Verbalizations/Mental Status: []Client alert and oriented, casually dressed and groomed. Eye contact fair, at times distracted by phone. Motor activity appropriate. Speech within normal limits. Affect congruent, mood euthymic. Thoughts linear, logical, no signs of hallucinations or delusions. Client Response/Progress/Benefit: []Client was a semi-active participant in group discussion, at times appearing distracted by her phone and on other occasions able to provide input to discussion. Reviewed safety behaviors she engages in that reinforce anxiety. Some of client?s safety behaviors include: avoiding, giving up, or turning to unhealthy coping mechanisms. Attentive during psychoeducation on mindfulness coping skills and their impact on mental health wellness. The group worked together to brainstorm anxiety reduction strategies. Client selected trying to complete different counting exercises as the mindfulness skill she will practice over the next three days. Client seemed to benefit from increased repertoire of anxiety reduction skills. Client will continue IOP tx to continue to reduce intensity of symptoms, improve overall functioning and mood stability, as well as prevent decompensation. Narrative Note: []
--- NOTE | 2021-04-11 09:05 | BH.SGPN.GN ---
Behaviors/Verbalizations/Mental Status: []Client alert and oriented, casually dressed and groomed. Eye contact good. Motor activity appropriate. Speech within normal limits. Affect incongruent to mood AEB laughing and joking about stressors, mood anxious. Thoughts linear, logical, no signs of hallucinations or delusions. Reviewed client?s symptom tracker and client's scores are within client's baseline. No risk noted. Client Response/Progress/Benefit: C[]Client responded well to session, receptive to feedback from peers. Client reports feeling scared and grateful this morning. However, client's check-in today was mostly about stressors and impending family conflict. Client shared she had a mental breakdown this morning, but being in group has helped her turn it around. Client reports this was triggered by the upcoming holiday and being around family and trauma triggers. Client shared normally she would be suicidal, but she is not which is progress. Client stated she has been working on developing an escape plan so if she gets too overwhelmed at her mother's house, client can take a break. Therapist attempted to discuss potential boundaries that could be set to prevent conflict, but client reports belief it is important for her to attend the family event. Appeared to benefit from connecting with peers. Continues to struggle with interpersonal effectiveness skills and emotional regulation. Improving with managing suicidal ideations. Will continue IOP tx to prevent decompensation, reduce impulsivity, and improve functioning. Narrative Note: []
--- NOTE | 2021-04-11 09:31 | BH.TPR ---
Treatment Plan Review Date of Admission:: 03/13/21 Date of Treatment Plan Review:: 04/11/21 Admitting Diagnoses:: 1. Major depressive disorder, recurrent, severe without psychosis F33.2. 2. Borderline personality disorder. 3. Generalized anxiety disorder. 4. PTSD Current Diagnoses:: 1. Major depressive disorder, recurrent, severe without psychosis F33.2. 2. Borderline personality disorder. 3. Generalized anxiety disorder. 4. PTSD Patient's Response to Treatment:: Pt consistently attends IOP sessions. Pt's engagement is variable, often based on her mood for the day. When she does participate she offers helpful input to group process. Engaged in individual therapy sessions, but struggles with completing homework. Status of Current Problems and Symptoms: Ongoing problems. Pt continues to report significant daily anxiety. Pt wants to have her one year old daughter back but recognizes she needs to finish treatment so she can be a more present mom. Pt reports constant conflict with pt's mom whom is caring for pt's daughter. This causes more stress and anxiety for pt because mom limits how frequent pt can see her daughter. Pt has reported decrease in depressed symptoms reporting suicidal thoughts have decreased in frequency and severity and is able to accomplish more throughout the day. Pt struggles with consistent application of skills and poor follow through on small goals set in individual sessions. Problem #1 Problem Name:: depression Status of Goals:: obj 1 - partially met. Pt can identify healthy coping skills like opposite action, using positive supports, engaging in hobbies. However pt does struggle with using skills in the moment. Needs help with challenging negative/distorted perspective. obj 2- met with ongoing work encouraged. Per pt's DSM 5 scores at review her depressed symptoms have decreased by 29%. Pt reports improved motivation and not lying around all day. Team Recommendations:: Pt to continue current goal and objectives. Team recommends focus on helping pt increase consistent application of skills and helping pt establish with outpatient care. Problem #2 Problem Name:: Anxiety Status of Goals:: obj 1 - partially met. Pt can identify healthy calming skills like engaging 5 senses, belly breathing and grounding. However pt does struggle with using skills in the moment. obj 2- not met. Per pt's DSM 5 scores at review her anxious symptoms have maintained compared to intake scores. Pt does report significant anxiety about upcoming holidays and having to interact with her family . Team Recommendations:: Pt to continue current goal and objectives. Team recommends focus on helping pt increase consistent application of skills and helping pt establish with outpatient care.
--- NOTE | 2021-04-11 10:15 | BH.SGPN.GN ---
Behaviors/Verbalizations/Mental Status: []Client alert and oriented, casually dressed and groomed. Eye contact good. Motor activity appropriate. Speech within normal limits. Affect congruent, mood anxious. Thoughts linear, logical, no signs of hallucinations or delusions. Client Response/Progress/Benefit: []Client receptive to session, providing input at times and listened attentively to peers. Provided input as the group brainstormed the positive and negative aspects of stress on physical and mental health. Group did well to identify the benefits of stress as well as the impact of distress on performance and mental health. Client identified top stressors such as money problems, family discord, , and being a young mom.. Client identifies money and family to be most significant stressors currently. Stated when has overwhelming amount of stress she tries to reach out to support and focus on what is in her control. Client reported a few weeks ago her reaction to overwhelming stress was to have suicidal thoughts and make impulsive actions. client seemed to benefit from increasing self-awareness of current stressors. Recommended to continue IOP tx to promote use of healthy coping skills, challenge distorted thoughts and prevent decompensation.
--- NOTE | 2021-04-11 11:15 | BH.SGPN.GN ---
Behaviors/Verbalizations/Mental Status: [] Eye contact is good. Motor activity is appropriate. Appearance is disheveled. Speech is Appropriate. Mood is anxious. Affect is congruent. Thoughts are linear and logical. No evidence of psychosis. Client Response/Progress/Benefit: [] Pt was an active participant in group discussion and activity. Attentive during psychoeducation. Provided appropriate feedback. Engaged in group experiential activity which led to interactive discussion on what it means to have control over stressors vs having no control over stressors. Participated in and provided insight during psychoeducation on the four A?s of stress (adapt, alter, avoid, accept). Pt identified stressor of upcoming holiday with her family and made goal to utilize the strategies of Accepting and Adapting stating I have to accept and adapt to the events that are out of my control during the holiday dinner. Benefited from increased awareness of stress management strategies. Will continue in IOP to maintain safety, increase healthy coping, and prevent decompensation. Narrative Note: []
--- NOTE | 2021-04-11 11:50 | PCM.BH.PN ---
Progress Note Progress Note: history of Present Illness/Interim History: [] The patient is a 20-year-old female who is seen in follow-up at the [facility] behavioral health IOP program. The patient is now about 13 weeks and states that her morning sickness now is less. She still vomits but only vomits in the morning now and is planning to take her Zoloft at night and feels she will be able to hold it down. The prescription was sent in 1 week ago but the patient states that the pharmacy did not have it yet and in the past week and she called them yesterday supposedly and they still do not have her Zoloft. She says she will go get it today if it is in and started tonight. Her mood is better because she feels she is learning valuable coping skills in the IOP program which help her deal with her down.. She still has occasional days where she feels sad but overall feels she is doing better. She is working a new job now and it is going well. There are some issues with some of the other personnel at work but the patient is doing well and the issues are with the work boss not the patient. She denies any passive thoughts of , suicidal ideation, homicidal ideation, hallucinations or delusions. She feels that her children are her motivation to do well in life. Current Psychiatric Medications: [] Has not started the Prozac yet and has not picked it up the prescription. Mental Status Examination: [] Patient is a 20-year-old female who is seen wearing a mask due to the pandemic. She is casually dressed and groomed with good hygiene and has no psychomotor agitation or retardation. Eye contact is good and speech is normal rate and rhythm and fluent with no pressure. Mood is depressed but mildly so today. Affect is full and normal today. Thought processes goal-directed and organized. Thought content: There is no evidence of passive thoughts of , suicidal ideation, homicidal ideation, hallucinations or delusions. Judgment is limited. Insight is limited. Impulsivity is high. Diagnoses: [] 1. Major depressive disorder, recurrent, severe without psychosis (improving) 2. Borderline personality disorder 3. Generalized anxiety disorder 4. PTSD 5. 13-week intrauterine 6. Poor primary support 7. Financial, housing issues Plan: [] The patient will continue the IOP program at [facility] as the structure,'s support, education, and group therapy will hopefully prevent worsening of the patient's symptoms which might require hospitalization. She felt safe during the interview and if it anytime she does not feel safe she will let us know or go to the emergency room. The risks, options, possible complications and side effects of the medications in and breast-feeding were discussed again with the patient and she understands and accepts these. The patient will brick picker her prescription today and start her Zoloft 50 mg at bedtime tonight. She will continue to follow-up with her outpatient psychiatric and medical providers.
--- NOTE | 2021-04-17 09:05 | BH.SGPN.GN ---
Behaviors/Verbalizations/Mental Status: []Client alert and oriented, casually dressed and groomed. Eye contact fair. Motor activity appropriate. Speech within normal limits. Affect incongruent- laughing and smiling but reporting stressful and triggering situations, mood anxious. Thoughts linear, logical, no signs of hallucinations or delusions. Reviewed client?s symptom tracker, no risk for suicidal ideation, plan, or intent as of 04/17/21 Client Response/Progress/Benefit: C[]Client responded well to session, less interactive with peers than previous sessions, but engaged. Client reports feeling overwhelmed today due to family stressors and conflict. However, when client described the events, client was laughing about the triggers. Client stated she felt suicidal over the weekend, but used healthy coping skills to reach out to a friend for support. Client self-reports that her mood and ability to function have generally been worse per the daily symptom tracker. Client denies any suicidal ideations or urges to self-harm today on the daily symptom tracker which is progress. However, client's progress appears to be variable based on the day/week and ongoing external stressors. Will continue IOP tx to maintain safety, prevent decompensation, and gain healthy coping skills. Narrative Note: []
--- NOTE | 2021-04-17 10:15 | BH.SGPN.GN ---
Behaviors/Verbalizations/Mental Status: []Client alert and oriented, casually dressed and groomed. Eye contact fair. Motor activity appropriate. Speech within normal limits. Affect constricted, mood dysthymic. Thoughts linear, logical, no signs of hallucinations or delusions. Client Response/Progress/Benefit: []Client engaged participant AEB providing contributions during group discussion and listened attentively to peers. Helped group discuss the benefits of relationships as well as the potential factors maintaining unhealthy relationships. Helped group identify characteristics that can lead to unhealthy relationships which included: poor communication, disrespect, poor emotional regulation, blaming others, and substance abuse. Pt identified she struggles with poor communication and trusting others. Recognizes impact this has on being able to form new relationships. Appeared to benefit from increasing awareness of the impact unhealthy relationships can have on mental health. Pt to continue IOP to increase consistent use of healthy coping, challenge distorted thoughts and prevent decompensation. Narrative Note: []
--- NOTE | 2021-04-17 11:15 | BH.SGPN.GN ---
Behaviors/Verbalizations/Mental Status: [] Client alert and oriented, casually dressed and groomed. Eye contact poor, often looking at phone. Motor activity appropriate. Speech within normal limits, soft. Affect congruent, mood depressed, irritable. Thoughts linear, logical, no signs of hallucinations or delusions. Client Response/Progress/Benefit: [] Client receptive of session, however at times struggled with engagement and appeared distracted by her phone. Able to increase attentiveness during psychoeducation about characteristics of healthy, unhealthy, and abusive relationships. Pt identified that she has been working to improve her own self-care which she connected would in turn improve her overall relationships with others. Reflected upon relationship strengths which pt identified as respecting others and listening as they share, even if she does not agree or believe the relationship is healthy. Appeared to benefit from reflecting upon personal relationship strengths, as well as brainstorming strategies to build healthier relationships. Pt to continue IOP tx to maintain mood stability, continue to promote healthy coping skill application and boundaries, as well as prevent decompensation. Narrative Note: []
== END 2021-04-17 23:59 ==
LOC: BHIOP 09:00
PROVIDERS: PCP Family Medicine; Visit Provider Psychiatry & Neurology Psychiatry
DX: O99.341 Other mental disorders complicating pregnancy, first trimester (principal); Z3A.08 8 weeks gestation of pregnancy; F33.2 Major depressive disorder, recurrent severe without psychotic features; F60.3 Borderline personality disorder; F41.1 Generalized anxiety disorder; F43.10 Post-traumatic stress disorder, unspecified
CPT/HCPCS: 99213; H2012; H2020; S9480; 90832; 90834

== ENCOUNTER 2021-04-18 09:00 | Outpatient (RCR) | payer MEDICAID, SELFPAY ==
[2021-04-18 00:36] VITALS: BP 110/72; PULSE 66
--- NOTE | 2021-04-24 09:05 | BH.SGPN.GN ---
Behaviors/Verbalizations/Mental Status: []Client alert and oriented, casually dressed and groomed. Eye contact good. Motor activity appropriate. Speech within normal limits. Affect incongruent AEB laughing and joking about trauma, mood euthymic. Thoughts linear, logical, no signs of hallucinations or delusions. Reviewed client?s symptom tracker, no risk for suicidal ideation, plan, or intent as of 04/24/21 Client Response/Progress/Benefit: []Client was attentive and contributing during discussion. Client reports feeling anxious and excited this morning, but client struggled to identify what was making her excited. Client identified multiple stressors within the last week including getting sick, her shower breaking, and stressors with her ex-boyfriend. Client appears to minimize the significant of these stressors AEB laughing and joking about these stressors during check-in. Client struggled to identify positives, but able to recognize setting a boundary with her ex-boyfriend as a positive. Client reports some medication concerns and these will be communicated to [facility] psychiatrist. Appeared to benefit from connecting with peers, however, client's ongoing minimization of stressors may client's willingness to make change. Will continue IOP tx to increase emotional regulation skills and improve daily functioning Narrative Note: []
--- NOTE | 2021-04-24 10:15 | BH.SGPN.GN ---
Behaviors/Verbalizations/Mental Status: []Client alert and oriented, casually dressed, hygiene appeared to be tended to. Eye contact good. Motor activity appropriate. Speech within normal limits. Affect full, mood euthymic. Thoughts linear, logical, no signs of hallucinations or delusions. Client Response/Progress/Benefit: []Client responded well to session, attentive and engaged throughout discussion and activity. The group identified benefits of failure as: learning new skills, gaining perspective, and helping individuals learn to succeed. Client stated prior to IOP she viewed failure as a negative and made her feel defeated. Client reported she now can see how failure has something that she can learn from. Client stated she used to let failure define her which would make her think why would I try again? Client appeared to benefit from gaining awareness of the impact fear of failure can have on one?s mental health and wellbeing. Progress noted as client reported being able to challenge her perspective and see failure as something that can help her grow. Will continue IOP to continue the use of healthy coping skills, increase self-confidence, and prevent decompensation.
--- NOTE | 2021-04-24 14:27 | BH.MDN ---
Multi-Disciplinary Note - Note 30-min Individual Time Started:: 11:25 Date: 04/24/21 Purpose of session/treatment goals addressed:: Purpose of session was to address goals 1 and 2. Eye Contact:: Good Motor Activity:: Appropriate Appearance:: Casual Speech:: Appropriate Mood:: Euthymic Affect:: Congruent Thoughts:: Linear, Logical, No evidence of hallucinations/delusions noted Staff Interventions:: CBT techniques, discharge planning, goal setting, other - dsicussion about increasing follow through of healthy coping skills. Client Response:: Pt reported things have been going better with her mom. Pt stated she has been able to spend several hours with her mom and not have a fight. Pt notes this as progress for her because relationship is improving. Pt stated she has not called the counseling center to establish a counseling appointment. Pt called with therapist in session and scheduled intake apointment on 05/22/20. Pt admitted she is struggling with using her coping skills consistently. Pt stated she is reminding herself that it's okay to ask for help and it's okay to have bad moments. Pt reported her goal is to talk with her mom about getting a second job and listen to what her mom has to say instead of reacting. Pt stated she is feeling more ready for discharge next week from [facility]. Risks/Concerns:: denies suicidal ideation, plan or intention to date. future focused. Progress Toward Goals/Plan:: Progress noted with pt reporting improved mood, decreased depression, and improved ability to manage emotions. Pt continues to struggle with consistent application of skills and has difficulty with challenging negative thought patterns independently. Pt to discharge from [facility] next week. Time Stopped:: 12:00
--- NOTE | 2021-04-25 09:03 | BH.SGPN.GN ---
Behaviors/Verbalizations/Mental Status: []Client alert and oriented, casually dressed and groomed. Eye contact good. Motor activity appropriate. Speech within normal limits- often jokes about stressors. Affect congruent, mood anxious. Thoughts linear, logical, no signs of hallucinations or delusions. Reviewed client?s symptom tracker, no risk for suicidal ideation, plan, or intent as of 04/25/21 Client Response/Progress/Benefit: C[]Client responded well to session, contributing and interacting with peers. Client reports feeling scared and proud this morning. Client reported there have been many stressors going on in her life right now and in the past this would trigger suicidal ideations and suicide attempts. Client reports belief that she is coping much better now and when client feels overwhelmed she calls her supports and spends time with them. Client shared she has not been actively suicidal in a while and she feels more future oriented which is significant. Appeared to benefit from reflecting on progress in using emotional regulation skills and support to manage suicidal ideations. Also progress that client can identify progress as client admits that she struggles with giving herself credit. Will continue IOP tx to promote gains and further increase emotional regulation skills. Narrative Note: []
--- NOTE | 2021-04-25 10:10 | BH.SGPN.GN ---
Behaviors/Verbalizations/Mental Status: []Client alert and oriented, casually dressed and groomed. Eye contact good. Motor activity restless. Speech within normal limits. Affect congruent, mood euthymic and anxious. Thoughts linear, logical, no signs of hallucinations or delusions. Client Response/Progress/Benefit: []Pt was an active participant in group discussion. Attentive during psychoeducation on communication styles. Along with peers pt participated in providing insight into the benefits to effective communication on mental health which included; helps us set healthy boundaries, get needs met, improve overall mental health and quality of life, reduce stress, and make time for self-care. Pt along with peers able to identify ways that communication can be misinterpreted and the potential costs this can have mental health and relationships. Pt remained attentive and appeared to benefit from discussion on the various communication styles, as well as reviewing the importance of communicating effectively to improve mental wellness. Shared connecting most with passive communication but can become more assertive when communicating with specific family members who trigger client. Progress noted in increased insight regarding impacts of current communication styles on pt mental health. Will continue IOP tx to improve emotion regulation and distress tolerance skills, improve healthy boundary setting, as well as prevent decompensation. Narrative Note: []
--- NOTE | 2021-04-25 10:25 | BH.COMM ---
Communication Note - Communication with Client Communication Note: Met with client at this time to discuss client's complaints of seeing things. Talking with client, she describes seeing dark shadows at times and thinking she sees people out of the corner of her vision and then no one is there. Client states this has happened to her in the past with no relation to any medication she has been taking. Client states she has been taking her Zoloft as ordered. Discussed with client this is not a hallucination and not due to medication. Client reassured at this time about medication therapy. Client denies any other questions/concerns.
--- NOTE | 2021-04-25 11:10 | BH.SGPN.GN ---
Behaviors/Verbalizations/Mental Status: []Client alert and oriented, casually dressed and appropriately groomed. Eye contact good. Motor activity appropriate. Speech WNL. Affect constricted, mood dysthymic. Thoughts linear, logical, no signs of hallucinations or delusions. Client Response/Progress/Benefit: []Client responded well to session AEB client listening attentively to others and providing input during group discussion on the pay offs and costs of the different communication styles. Client stated she is most often a passive communicator. Client reported this can increase depression since needs aren't being met. Attentive during psychoeducation on interpersonal DBT skill DILEEP and client selected a communication skill to practice. Client selected the skill of asserting self because will help get needs met more often. Client seemed to benefit from increasing awareness of healthy strategies to improve communication. Will continue IOP tx to challenge negative thoughts, increase consistent use of healthy coping and prevent decompensation. Narrative Note: []
--- NOTE | 2021-04-27 09:07 | BH.SGPN.GN ---
Behaviors/Verbalizations/Mental Status: []Eye contact is good. Motor activity is appropriate. Appearance is casual. Speech is Appropriate. Mood is euthymic. Affect is congruent. Thoughts are linear and logical. No evidence of psychosis. Reviewed daily check in sheet and no reports of suicidal ideations or intent. Client Response/Progress/Benefit: []Pt responded well to session AEB sharing thoughts and feelings and appearing to listen attentively to peer. Pt stated this morning started off rough because she was having some belly pain which made her anxious something is wrong with her baby. Pt reported she was able to manage her anxiety and is feeling better now. Pt identified mental health positive as work continuing to get better. Pt identified additional positives as getting her shower fixed in her apartment and relationship with mom is improving. Pt stated current stressor is not getting along with her mom's new . Pt to continue IOP to continue use of healthy coping, decrease self-destructive behaviors and prevent decompensation. Narrative Note: []
--- NOTE | 2021-04-27 10:08 | BH.SGPN.GN ---
Behaviors/Verbalizations/Mental Status: []Client alert and oriented, casually dressed and groomed. Eye contact good, at times appearing distracted by phone. Motor activity appropriate. Speech within normal limits. Affect congruent, mood euthymic. Thoughts linear, logical, no signs of hallucinations or delusions.[] Client Response/Progress/Benefit: []Client engaged during session AEB client contributing to discussion when prompted and completing worksheet, however remained primarily passive in participation. Connected with discussion on crisis and how coping with external crises by using unhealthy coping skills could result in a personal crisis. Provided an example of her daughter losing her favorite blanket resulting in crisis. Group reflected on the importance of having awareness of personal warning signs in order to prevent reaching crisis point. Group identified potential warning signs for crisis and client completed the personal warning signs worksheet. Client identified personal crisis warning signs to include: negative thinking, not caring for self, eating less than usual as punishment. Shared some of her behavior changes have been learned behaviors. Client benefited by increasing awareness of what leads to crisis and personal warning signs. Client will continue IOP to continue to promote continued use of healthy boundary setting, encourage use of healthy emotion regulation skills, as well as prevent decompensation. Narrative Note: []
--- NOTE | 2021-04-27 11:10 | BH.SGPN.GN ---
Behaviors/Verbalizations/Mental Status: []Client alert and oriented, casually dressed and groomed. Eye contact good. Motor activity appropriate. Speech within normal limits. Affect constricted, mood dysthymic and anxious. Thoughts linear, logical, no signs of hallucinations or delusions. Client Response/Progress/Benefit: []Client responded well to session as evidenced by client listening attentively to others and providing strategies during small group discussion. Client identified warning signs for crisis and gained further awareness of earliest warning signs. Client created a crisis action plan to help client better manage warning signs for crisis. Client?s action plan for eating less than usual included: meal planning, writing down why she needs to eat, positive affirmations, scheduling time to eat, keeping better food at home, and asking her sister for support. Client appeared to benefit from creating a crisis action plan and increasing self-awareness. Client will continue IOP tx to reinforce healthy coping skills, improve mood stability, and establish aftercare. Narrative Note: []
--- NOTE | 2021-05-02 09:00 | BH.SGPN.GN ---
Behaviors/Verbalizations/Mental Status: []Eye contact is good. Motor activity is appropriate. Appearance is casual. Speech is Appropriate. Mood is anxious. Affect is congruent. Thoughts are linear and logical. No evidence of psychosis. Reviewed daily check in sheet and no reports of suicidal ideations or intent. Client Response/Progress/Benefit: []Pt responded well to session AEB pt listening attentively to peers and sharing thoughts with group. Pt stated she has been struggling the past couple of days because her morning sickness has returned due to her . Pt reported she hasn't been able to eat or drink much due to not keeping things down. Pt stated she is scheduled to see her OB today and will discuss concerns with nausea and vomiting. Pt stated she had a mental breakdown yesterday and had some suicidal thoughts. Pt reported she was able to work through her suicidal thoughts yesterday. Initially pt reported she didn't feel ready to discharge this Friday. However, with some help from therapist pt recognizes she has made significant progress since starting IOP. Pt stated 6 weeks ago she would have likely acted upon her suicidal thoughts but yesterday quickly moved on from the thoughts. Pt to continue IOP to maintain gains, continue use of skills and prevent decompensation. Narrative Note: []
--- NOTE | 2021-05-04 10:10 | BH.SGPN.GN ---
Behaviors/Verbalizations/Mental Status: []Eye contact is good. Motor activity is appropriate. Appearance is casual. Speech is Appropriate. Mood is euthymic. Affect is congruent. Thoughts are linear and logical. No evidence of psychosis. Client Response/Progress/Benefit: []Pt was an active participant in group discussion AEB taking notes and providing input throughout. Attentive during psychoeducation reviewing internal and external obstacles and provided examples throughout. Participated in the reflection activity in which clients sariah pictures depicting their current and desired reality and shared with the group. Pt stated in current reality she is taking care of her kids on her own with limited support but feeling more optimistic she can handle her life stressors. Reported desired reality is to be with kids, having increased support system and be able to provide kids with more than basic needs. Benefited from group by increasing current awareness and expectations for progress. Pt to continue IOP to improve emotion regulation, challenge distorted thoughts and prevent decompensation.
--- NOTE | 2021-05-04 11:10 | BH.SGPN.GN ---
Behaviors/Verbalizations/Mental Status: []Client alert and oriented, casually dressed and groomed. Eye contact good. Motor activity appropriate. Speech within normal limits. Affect congruent, mood euthymic. Thoughts linear, logical, no signs of hallucinations or delusions. Client Response/Progress/Benefit: [] Client engaged during activity and provided group with ideas on how to cope with internal barriers that keep clients stuck from moving towards goals. Client able to identify personal barriers to their desired reality, which included: poor boundaries, not having a job, toxic family supports, and negative self-talk. Client wants to work on reducing negative self-talk by practicing reframing her perspective, as well as writing letters she doesn?t plan to send in order to vent when upset rather than taking it out on others. Reports this will aid in further improving overall emotion regulation and ability to cope. Benefited from group by identifying personal obstacles and potential solutions to desired reality. Client will discharge from IOP tx and is encouraged to continue with outpatient tx to maintain gains, encourage ongoing skills use, and prevent decompensation. Narrative Note: []
--- NOTE | 2021-05-04 14:41 | BH.MDN ---
Multi-Disciplinary Note - Note 30-min Individual Time Started:: 09:10 Date: 05/04/21 Purpose of session/treatment goals addressed:: Purpose of session was to review treatment progress, identify strategies to maintain progress, and review aftercare plans. Eye Contact:: Good Motor Activity:: Appropriate Appearance:: Casual Speech:: Appropriate Mood:: Euthymic Affect:: Full Thoughts:: Linear, Logical, No evidence of hallucinations/delusions noted Staff Interventions:: discharge planning, strengths perspective, reviewed DSM-5 Client Response:: Pt identified treatment progress since starting IOP to include: managing stressors more effectively, no longer having suicidal thoughts, decrease in intensity of depressive symptoms, improved conflict resolution skills, and able to maintain a job. Pt stated strategies that can help her maintain progress includes: writing letters, using healthy distractions, being around friends, assertive communication, follow through with outpatient mental health providers, challenge distorted thoughts, and belly breathing. Pt stated she has an intake appointment at [facility] on 05/22/21 at 8:30am. Pt stated feeling nervous about discharging from IOP but recognizes she is in a much healthier place compared to when she first started IOP. Risks/Concerns:: denies suicidal/homicidal ideation, plan or intention to date. future focused. Progress Toward Goals/Plan:: Pt has made treatment progress AEB pt's DSM 5 scores at discharge. Pt's DSM 5 cross cutting measures indicate a 43% reduction in depression, 44% reduction in anxiety, 100% reduction in thoughts of hurting self and an overall symptom reduction of 45%. Pt has been able to maintain safety since starting IOP. Pt has improved self-awareness, able to challenge negative thoughts more often, using healthy skills, and improved confidence. Plan is for pt to discharge from IOP today. Pt has appointment on 05/22/21 for intake at [facility]. Pt encouraged to establish with counseling, psychiatry and case management there. Time Stopped:: 09:35
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
== END 2021-05-04 13:09 | disposition home or self-care (01) ==
LOC: BHIOP 09:00
PROVIDERS: PCP Family Medicine; Visit Provider Psychiatry & Neurology Psychiatry
DX: O99.341 Other mental disorders complicating pregnancy, first trimester (principal); Z3A.08 8 weeks gestation of pregnancy; F33.2 Major depressive disorder, recurrent severe without psychotic features; F60.3 Borderline personality disorder; F41.1 Generalized anxiety disorder; F43.10 Post-traumatic stress disorder, unspecified
CPT/HCPCS: H2012; H2020; S9480; 90832

== ENCOUNTER 2021-05-29 17:26 | Emergency (ER) | payer MEDICAID, SELFPAY ==
[2021-05-29 17:27] VITALS: BP 129/77; PULSE 111; RESP 16; TEMP 36.7; O2SAT 100; BMI 20.3
--- NOTE | 2021-05-29 17:48 | EDS_ITS ---
HPI HPI - Female History of Present Illness Chief Complaint: Vag Bld, Preg Detail of Chief Complaint: Hematuria and lower abdominal cramping Narrative Narrative: Patient presents to the emergency department with lower abdominal cramping x2 days and hematuria that started today. Patient has urinary frequency. Patient is 19 weeks and is G2, P1. Patient states that she was treated for UTI a couple of weeks ago. Patient denies any fever at home. She has had no nausea or vomiting. Patient does have remote history of kidney stones. Patient has been feeling the baby move and she denies vaginal bleeding. Prior similar symptoms: Yes PFSH PFS Medical History (Updated 05/29/21 @ 20:[address] Bucky Flor, DO) Borderline personality disorder Generalized anxiety disorder Kidney stones Major depressive disorder, recurrent severe without psychotic features PTSD (post-traumatic stress disorder) Home Medications Vitamin 1 tablet PO/SL DAILY 03/14/21 [History Last Taken Unknown] ondansetron HCl [Zofran] 4 mg PO BID PRN PRN 03/14/21 [History Last Taken Unknown] cephalexin 500 mg PO Q6 #28 capsule 05/29/21 [Rx Last Taken Unknown] hydrocodone-acetaminophen 1 tab PO Q4H PRN PRN 2 Days #10 tablet 05/29/21 [Rx Last Taken Unknown] Allergy/AdvReac Type Severity Reaction Status Date / Time sertraline AdvReac Other Verified 05/29/21 17:29 Social History Smoking Status: Former smoker ROS ROS ED Constitutional Constitutional ED: Reports systems reviewed and no addt'l complaints, except as documented; Denies body ache(s), change in weight or chills Eyes Eyes: Denies acute decrease in peripheral vision, change in vision, double vision or loss of vision ENT ENT ED: Reports none; Denies ear pain, lip swelling, loss taste/smell, neck pain, otalgia or sore throat Cardiovascular Cardiovascular: Reports none; Denies abdominal pain, chest pain with activity, leg edema, lightheadedness, palpitations, rapid heart rate or syncope Respiratory/Chest Respiratory/Chest: Reports none; Denies change in mental status, dry cough, dyspnea, hemoptysis, shortness of breath at rest or shortness of breath with exertion Gastrointestinal Gastrointestinal: Reports none and abdominal pain; Denies change in stool character, diarrhea, hematemesis, hematochezia, melena, rectal bleeding or vomiting Genitourinary Genitourinary ED: Reports none, dysuria, hematuria and urinary frequency; Denies abdominal discomfort, anuria, genital pain or polyuria Musculoskeletal Musculoskeletal: Reports none; Denies arthralgias, back pain, difficulty walking, extremity pain, muscle weakness or myalgias Integumentary Reports none; Denies abscess or rash Neurologic Neurologic: Reports none; Denies abnormal gait, confusion, focal weakness, frequent falls, headache(s), loss of vision, numbness, paresthesias, radicular pain, vertigo or weakness Psychiatric Psychiatric: Reports systems reviewed and no addt'l complaints, except as documented and none; Denies behavioral changes, confusion, difficulty concentrating, hallucinations, suicidal ideation, tactile hallucinations or visual hallucinations Endocrine Endocrinology: Denies none, cold intolerance, excessive sweating, fatigue or heat intolerance Hematologic/Lymphatic Hematologic/Lymphatic: Reports none; Denies anemia, easy bleeding or easy bruising Allergic/Immunologic Allergic/Immunologic ED: Denies as per HPI, none, lip swelling, mouth swelling, throat swelling, tongue swelling or hives EXAM Physical Exam Const Vital Signs: 05/29/21 17:27 05/29/21 19:25 Temperature 98.0 F Temperature Source Temporal Pulse Rate 111 H 82 Respiratory Rate 16 20 H Blood Pressure 129/77 H 104/71 Blood Pressure Mean 94 82 Pulse Ox 100 100 Oxygen Delivery Method Room Air Room Air Positive well nourished and well developed General Appearance ED: well developed and NAD HEENT Reports TM's clear and moist mucous membranes normocephalic and atraumatic; Negative for trauma or tenderness Tympanic Membrane ED: Yes TM's clear Eyes PERRL and EOMs intact bilaterally General Eye ED: Negative for pale conjunctiva or scleral icterus Neck no lymphadenopathy, supple and no JVD General: Negative for tenderness Chest Wall inspection of chest normal and palpation of chest normal Chest: Negative for tenderness Resp normal respiratory effort and clear to auscultation bilaterally Effort and Inspection: Negative for respiratory distress or pain with movement Auscultation: Negative for rhonchi, wheezes or diminished lung sounds Cardio regular rate, regular rhythm, S1 normal heart sound, S2 normal heart sound and no murmurs Peripheral Pulses: pulses 2+ throughout GI normal to inspection, nondistended, normoactive bowel sounds, soft to palpation, non-distended and no masses GI Narrative: Patient has diffuse tenderness over the lower abdomen and suprapubic region. Patient is gravid with fundal height approximately at the umbilicus. There is no rebound, rigidity, or peritoneal signs. Back/Spine no CVA tenderness and no thoracic nor lumbar tenderness Extremity normal to inspection General Extremety ED: Negative for edema General Extremity: Negative for edema Neuro oriented x3, CN's II-XII intact bilaterally, no sensory deficits noted and gait normal Sensorium / Orientation: awake, alert, oriented to person, oriented to place and oriented to time Motor Exam: strength 5/5 throughout and strength abnormal Psych mental status grossly normal Skin no rashes or lesions noted and no wounds MDM MDM MDM Narrative Medical decision making narrative: IV line established. Patient was given morphine and Zofran for her pain. She has history of kidney stones and patient was concerned she might have another kidney stone given the hematuria without significant signs of infection otherwise I did perform a CT scan to evaluate further. This was negative for kidney stone and there was a normal appendix noted. At this point I will send off a urine culture and given that clinically she has symptoms of UTI will treat with Keflex and give a prescription for few [place] for pain. Patient advised to follow-up with her primary care physician within next 3 to 5 days. She is advised to return if worsening pain, fever, vomiting, or condition should worsen anyway. Lab Data Attestation: I reviewed the patient's lab results. Labs: Laboratory Results - last 24 hr 05/29/21 05/29/21 05/29/21 17:59 19:27 19:27 WBC 12.5 H RBC 3.95 L Hgb 11.7 L Hct 35.4 L MCV 89.6 MCH 29.6 MCHC 33.1 RDW Std Deviation 43.8 RDW Coeff of Radha 13.3 Plt Count 296 MPV 9.4 Immature Gran % (Auto) 0.600 Neut % (Auto) 80.2 H Lymph % (Auto) 13.1 L [place] % (Auto) 5.4 Eos % (Auto) 0.5 Baso % (Auto) 0.2 Absolute Neuts (auto) 10.0 H Absolute Lymphs (auto) 1.63 Nucleated RBC % 0 Sodium 137 Potassium 3.8 Chloride 108 H Carbon Dioxide 24.0 Anion Gap 5 BUN 6 L Creatinine 0.39 L Estim Creat Clear Calc 191.06 Est GFR (MDRD) Af Amer 268 Est GFR (MDRD) Non-Af 221 BUN/Creatinine Ratio 15.3 Glucose 91 Calcium 8.7 Urine Color Red Urine Clarity Turbid Urine pH 8.0 Ur Specific [place] 1.015 Urine Protein 100 H Urine Glucose (UA) Normal Urine Ketones Negative Urine Occult Blood 250 H Urine Nitrite Negative Urine Bilirubin Negative Urine Urobilinogen Normal Ur Leukocyte Esterase 100 H Urine RBC > 100 SEEN Urine WBC 0-5 SEEN Ur Squamous Epith Cells 0-5 SEEN Urine Bacteria 0 SEEN Urine Mucus 0 SEEN Radiography Diagnostic Testing: Clinical Impression(s) from Imaging Studies Abdomen/Pelvis CT 05/29/21 19:19 IMPRESSION: Intrauterine gestation. No acute abnormalities are identified. Individualized dose optimization techniques were used for this CT. at 1931 Reported and signed by: Malachi Finch MD Electronically Signed: Malachi Finch MD at 19:30 EST Tel , Service support , Discharge Plan Triage Chief Complaint: Vag Bld, Preg ED Provider: Bucky Flor Dx/Rx/DC Orders Clinical Impression: Hematuria, UTI (urinary tract infection) Instructions: Hematuria: Possible Causes, ED CYSTITIS Female Adult Prescriptions: New hydrocodone-acetaminophen [hydrocodone-acetaminophen] 1 TABLET tablet 1 tab PO Q4H PRN PRN (Reason: Pain) 2 Days Qty: 10 RF: 0 cephalexin [cephalexin] 500 MG capsule 500 mg PO Q6 Qty: 28 RF: 0 No Action ondansetron HCl [Zofran] 4 mg Tablet 4 mg PO BID PRN PRN (Reason: Nausea) RF: 0 Vitamin 1 tablet PO/SL DAILY RF: 0 Primary Care Provider: Javed Taylor Referrals: Javed Taylor MD [Primary Care Provider] - 3-5 Days Disposition Disposition: Home, Self Care
[2021-05-29 18:11] LABS: Bacteria 0 SEEN /hpf (None Seen); Mucous, Urine 0 SEEN /hpf (<or=2+)
[2021-05-29 18:13] LABS: Color, Urine Red (Yellow); Glucose, Dipstick Normal (Normal); Ketone-Dipstick Negative (Negative); Leukocyte Esterase-Dipstick 100 /ul (Negative); Nitrite-Dipstick Negative (Negative); Occult Blood-Urine 250 /ul (Negative); Protein-Dipstick 100 mg/dl (Negative); Specific Gravity, Urine 1.015 (1.002-1.030); Urine Bilirubin Dipstick Negative (Negative); Urine Clarity Turbid (Clear); Urine Urobilinogen Normal (Normal)
[2021-05-29 18:21] LABS: Red Blood Cells-Urine > 100 SEEN /hpf (0-5); Squamous Epithelial Cells - UA 0-5 SEEN /hpf (5-10); White Blood Cells 0-5 SEEN /hpf (0-5)
--- NOTE | 2021-05-29 19:19 | CT_ITS ---
EXAM: CT ABDOMEN AND PELVIS WITHOUT INTRAVENOUS CONTRAST : 2000 CLINICAL INDICATION: ABD PAIN TECHNIQUE: Helically acquired images were obtained of the abdomen and pelvis without intravenous contrast. This CT exam was performed using one or more of the following dose reduction techniques: automated exposure control, adjustment of the mA and/or kV according to patient size, and/or use of iterative reconstruction technique. This report was created using [employer] report generation technology. COMPARISON: None. FINDINGS: LOWER THORAX: Unremarkable. Lung bases are clear. No cardiomegaly. No significant pericardial effusion. ABDOMEN: LIVER: Unremarkable. Homogeneous. GALLBLADDER AND BILE DUCTS: Unremarkable. No calcified gallstones. No gallbladder distention or wall edema. No intra- or extrahepatic biliary ductal dilation. PANCREAS: Unremarkable. No focal cystic mass. SPLEEN: Unremarkable. Normal size without focal cystic or solid mass. ADRENALS: Unremarkable. No nodules. KIDNEYS AND URETERS: Unremarkable. Normal renal size and position. No hydronephrosis. STOMACH AND BOWEL: Unremarkable. No stomach or bowel distention. No focal inflammatory change. PELVIS: APPENDIX: The appendix is within normal limits. BLADDER: Unremarkable. REPRODUCTIVE: There is an intrauterine gestation. ABDOMEN and PELVIS: INTRAPERITONEAL SPACE: Unremarkable. No ascites or other fluid collection. No free air. BONES/JOINTS: Unremarkable. No suspicious lytic or blastic abnormality. SOFT TISSUES: Unremarkable. No discrete abdominal or pelvic wall hernia. VASCULATURE: Unremarkable. Abdominal aorta is non-dilated. LYMPH NODES: Unremarkable. No enlarged lymph nodes. CT/Abdomen/Pelvis without Cont IMPRESSION: Intrauterine gestation. No acute abnormalities are identified. Individualized dose optimization techniques were used for this CT. at 1931 Reported and signed by: Malachi Finch MD Electronically Signed: Malachi Finch MD at 19:30 EST Tel , Service support ,
[2021-05-29] MEDS: Morphine 4 MG/ML Syringe IV (19:23)
[2021-05-29] MEDS: Ondansetron 4 MG/2 ML Vial IV (19:23)
[2021-05-29] MEDS: 0.9% Normal Saline 1,000 ML 125 ML IV (19:24)
[2021-05-29 19:25] VITALS: BP 104/71; PULSE 82; RESP 20; O2SAT 100
[2021-05-29 19:40] LABS: Absolute Lymphocyte Count 1.63 X10^3/uL (0.83-4.51); Basophil# 0.02 X10^3/uL; Basophil% 0.2 % (0-1); Eosinophil# 0.06 X10^3/uL; Eosinophils% 0.5 % (0-5); Hematocrit 35.4 % (37-47); Hemoglobin 11.7 g/dL (12.0-15.0); Lymphocyte # 1.63 X10^3/ul (0.83-4.51); Lymphocyte % 13.1 % (19-41); Mean Corp Hgb Conc 33.1 g/dL (32-36); Mean Corpuscular Hgb 29.6 pg (27.0-32.0); Mean Corpuscular Volume 89.6 fL (81-99); Mean Platelet Vol. 9.4 fl (6.2-12.0); Monocyte# 0.68 X10^3/uL; Monocyte% 5.4 % (0-10); NRBC Flagged by Analyzer 0 % (0-5); Neutrophil # 10.03 X10^3/uL (2.7-7.7); Neutrophil % 80.2 % (47-70); Platelet Count 296 K/mm3 (150-450); RBC Distribution Width CV 13.3 % (11.6-14.6); RBC Distribution Width SD 43.8 fl (35.1-43.9); Red Blood Count 3.95 M/mm3 (4.2-5.4); White Blood Count 12.5 K/mm3 (4.4-11.0)
[2021-05-29 19:55] LABS: Anion Gap 5 (5-15); BUN 6 mg/dL (7-18); BUN/Creat Ratio 15.3 RATIO (10-20); Calcium,Total 8.7 mg/dL (8.5-10.1); Chloride 108 mmol/L (98-107); Creatinine, Serum 0.39 mg/dL (0.55-1.02); EST Glomerular Filtration Rate 221 mL/min (>60); Est Glom Filt Rate - Afr Amer 268 mL/min (>60); Estimated Creatinine Clearance 191.06 ml/min; Glucose 91 mg/dL (74-106); Potassium 3.8 mmol/L (3.5-5.1); Sodium Level 137 mmol/L (136-145)
[2021-05-29] MEDS: Cephalexin 250 MG Capsule 500 MG PO (21:13)
== END 2021-05-29 21:17 | disposition home or self-care (01) ==
PROVIDERS: Emergency Provider Emergency Medicine; PCP Family Medicine; Visit Provider Emergency Medicine
DX: O23.42 Unspecified infection of urinary tract in pregnancy, second trimester (principal); R31.9 Hematuria, unspecified; Z3A.19 19 weeks gestation of pregnancy; Z87.440 Personal history of urinary (tract) infections; Z87.442 Personal history of urinary calculi; Z87.891 Personal history of nicotine dependence
CPT/HCPCS: 74176; 80048; 81001; 85025; 87086; 87088; 96361; 96374; 96375; 99284; J7030; J2405